=== PATIENT | female | born 1995 | race Caucasian/White ===

== ENCOUNTER 2021-11-28 04:58 | Emergency (ER) | payer OTHER ==
[~2021-11-28 04:58] MED LIST: BACTRIM DS TAB1 EACH PO; NAPROXEN500 MG PO; ZOFRAN8 MG PO
[2021-11-28 06:29] LABS: INFLUENZA A NAA NEGATIVE (NEGATIVE)
[2021-11-28 06:32] LABS: CORONAVIRUS 2019 SARS-COV-2 POSITIVE (NEGATIVE)
[2021-11-28 06:37] LABS: BASOPHIL 0.7 % (0-2); EOSINOPHIL 1.2 % (0-5); HGB 13.3 g/dl (12.5-16.0); LYMPHOCYTE 6.9 % (15-48); MCH 27.8 pg (25.0-31.0); MCHC 33.3 g/dL (32.0-36.0); MCV 83.7 fL (78.0-100.0); MONOCYTE 9.3 % (0-12); MPV 9.2 fL (6.0-9.5); NEUTROPHIL 81.4 % (41-80); NRBC 0; PLT 371 K/uL (150-400); RBC 4.78 M/uL (4.20-5.40); RDW 12.6 % (11.5-14.0); WBC 7.7 K/uL (4.0-10.5)
[2021-11-28 06:49] LABS: BUN/CREAT RATIO (CALC) 11.1 RATIO; CREATININE 0.81 mg/dL (0.51-0.95); POTASSIUM 3.9 mmol/L (3.5-5.1)
[2021-11-28] MEDS ORDERED: PHENERGAN25 M1 PO (06:49)
[2021-11-28] MEDS ORDERED: MEDROL 4MG DOSEP4 MG PO (06:49)
[2021-11-28] MEDS ORDERED: AZITHROMYCIN250 MG PO (06:49)
[2021-11-28] MEDS ORDERED: MUCINEX DM ER1 EACH PO (06:51)
[2021-11-28 07:49] LABS: MONOSPOT (MONONUCLEOSIS) NEGATIVE (NEGATIVE)
== END 2021-11-28 07:34 | disposition home or self-care (01) ==
LOC: FER 04:58
PROVIDERS: Internal Medicine
DX: U07.1 COVID-19 (principal); F17.210 Nicotine dependence, cigarettes, uncomplicated; Z28.310 Unvaccinated for COVID-19
CPT/HCPCS: 36415; 71045; 80048; 85025; 86308; 87880; J1100; J1885; J2405; J7120; U0002

== ENCOUNTER 2022-01-02 22:48 | Emergency (ER) | payer OTHER ==
[~2022-01-02 22:48] MED LIST changes: +AZITHROMYCIN250 MG PO; +MEDROL 4MG DOSEP4 MG PO; +MUCINEX DM ER1 EACH PO; +PHENERGAN25 M1 PO
[2022-01-03 02:07] LABS: BASOPHIL 0.7 % (0-2); EOSINOPHIL 1.6 % (0-5); HCT 40.6 % (37.0-47.0); HGB 13.4 g/dl (12.5-16.0); MCH 28.2 pg (25.0-31.0); MCV 85.5 fL (78.0-100.0); MONOCYTE 8.8 % (0-12); MPV 9.3 fL (6.0-9.5); NEUTROPHIL 61.7 % (41-80); NRBC 0; PLT 352 K/uL (150-400); RBC 4.75 M/uL (4.20-5.40); RDW 13.2 % (11.5-14.0); WBC 8.8 K/uL (4.0-10.5)
[2022-01-03 02:25] LABS: ALBUMIN 3.3 g/dL (3.4-5.0); BILIRUBIN - TOTAL 0.3 mg/dL (0.2-1.0); BUN/CREAT RATIO (CALC) 15.2 RATIO; CREATININE 0.79 mg/dL (0.51-0.95); GLOBULIN (CALCULATION) 3.6 g/dL; POTASSIUM 3.5 mmol/L (3.5-5.1); TOTAL PROTEIN 6.9 g/dL (6.4-8.2)
== END 2022-01-03 03:20 | disposition home or self-care (01) ==
LOC: FER 22:48
PROVIDERS: Emergency Medicine
DX: R55 Syncope and collapse (principal); F17.200 Nicotine dependence, unspecified, uncomplicated
CPT/HCPCS: 36415; 80053; 84703; 85025; 93005; J1885; J7030